=== PATIENT | female | born 1975 | race Caucasian/White ===

== ENCOUNTER 2019-06-22 12:10 | Emergency (ER) | payer SELFPAY ==
--- NOTE | 2019-06-22 12:30 | Event Note ---
Date: 06/22/19 , H/o irregular menstrual cycles, last cycle was 3 months ago. She states she has heavy vaginal bleeding that started this morning at 5 am, has gone through 3 pads since. no fever, flank pain, mild suprapubic discomfort. The initial assessment/diagnostic orders/clinical plan/treatment(s) is/are subject to change based on patient's health status,clinical progression and re- assessment by fellow clinical providers in the ED. Further treatment and workup at subsequent clinical providers discretion. Patient/guardian urged not to elope from the ED as their condition may be serious if not clinically assessed and managed.
[2019-06-22 12:59] LABS: Hematocrit 38.5 % (30.3-42.9); Hemoglobin 13.4 gm/dl (10.1-14.3); Mean Corpuscular HGB Conc 35 % (30-34); Mean Corpuscular Volume 97 fl (79-97); Platelet Count 271 K/mm3 (140-440); Red Blood Count 3.96 M/mm3 (3.65-5.03); Red Cell Distribution Width 12.6 % (13.2-15.2)
--- NOTE | 2019-06-22 13:09 | Emergency Department Report ---
ED Female HPI - General Chief complaint: Vaginal Bleeding Stated complaint: BLEEDING ABNORMAL Time Seen by Provider: 06/22/19 12:49 Source: patient Mode of arrival: Ambulatory Limitations: No Limitations - History of Present Illness Initial comments: This is a 43-year-old female presents to the emergency room with heavy vaginal bleeding and lower abdominal pain since yesterday. Patient reports history of menstrual cycles and fibroids. Her last menstrual cycle was 3 months prior to yesterday, . Patient reports changing pads every 30 minutes to 1 hour. Denies fever, flank pain, dysuria, and vaginal discharge. MD Complaint: vaginal bleeding, pelvic pain Onset/Timin -: days(s) Location: suprapubic Radiation: non-radiating Severity: severe Severity scale (0 -10): 10 Quality: cramping Consistency: intermittent Improves with: none Worsens with: menstrual period Are you Now?: No Last Menstrual Period: 06/21/19 EDC: 03/27/20 Associated Symptoms: vaginal bleeding, abdominal pain. denies: vaginal discharge, nausea/vomiting, fever/chills, headaches, loss of appetite, dysuria, hematuria, rash, seizure, shortness of breath, syncope, weakness - Related Data Sexually active: Yes : 4 Para: 3 Previous Rx's Medication Instructions Recorded Last Taken Type HYDROcodone/ACETAMINOPHEN [Lortab 1 each PO Q8H #12 tablet 08/04/14 Unknown Rx 5-325 mg Tablet] Naproxen [Naprosyn] 500 mg PO BID #20 tablet 08/04/14 Unknown Rx Acetaminophen/Codeine [Tylenol #3] 1 tab PO Q6H PRN #20 tab 03/30/15 Unknown Rx Ondansetron [Zofran] 4 mg PO Q8HR PRN #20 tablet 03/30/15 Unknown Rx miSOPROStol [Cytotec] 400 mcg PO Q4HR #3 tablet 03/30/15 Unknown Rx medroxyPROGESTERone ACETATE 10 mg PO QDAY #10 tablet 06/22/19 Unknown Rx [Provera] traMADol [Ultram 50 MG tab] 50 mg PO Q6HR PRN #12 tablet 06/22/19 Unknown Rx Allergies Allergy/AdvReac Type Severity Reaction Status Date / Time No Known Allergies Allergy Verified 04/03/15 08:44 ED Review of Systems ROS: Stated complaint: BLEEDING ABNORMAL Other details as noted in HPI Constitutional: denies: chills, fever Respiratory: denies: cough, shortness of breath, wheezing Cardiovascular: denies: chest pain, palpitations Gastrointestinal: abdominal pain. denies: nausea, diarrhea Genitourinary: abnormal menses. denies: urgency, dysuria, discharge Musculoskeletal: denies: back pain, joint swelling, arthralgia Skin: denies: rash, lesions Neurological: denies: headache, weakness, paresthesias Psychiatric: denies: anxiety, depression ED Past Medical Hx - Past Medical History Previous Medical History?: Yes Additional medical history: fibroids - Surgical History Past Surgical History?: Yes Additional Surgical History: fibroid removal 2011 - Social History Smoking Status: Never Smoker Substance Use Type: None - Medications Home Medications: Home Medications Medication Instructions Recorded Confirmed Last Taken Type HYDROcodone/ACETAMINOPHEN [Lortab 1 each PO Q8H #12 tablet 08/04/14 Unknown Rx 5-325 mg Tablet] Naproxen [Naprosyn] 500 mg PO BID #20 tablet 08/04/14 Unknown Rx Acetaminophen/Codeine [Tylenol #3] 1 tab PO Q6H PRN #20 tab 03/30/15 Unknown Rx Ondansetron [Zofran] 4 mg PO Q8HR PRN #20 tablet 03/30/15 Unknown Rx miSOPROStol [Cytotec] 400 mcg PO Q4HR #3 tablet 03/30/15 Unknown Rx medroxyPROGESTERone ACETATE 10 mg PO QDAY #10 tablet 06/22/19 Unknown Rx [Provera] traMADol [Ultram 50 MG tab] 50 mg PO Q6HR PRN #12 tablet 06/22/19 Unknown Rx ED Physical Exam - General Limitations: No Limitations General appearance: alert, in no apparent distress, obese - Respiratory Respiratory exam: Present: normal lung sounds bilaterally. Absent: respiratory distress - Cardiovascular Cardiovascular Exam: Present: regular rate, normal rhythm. Absent: systolic murmur, diastolic murmur, rubs, gallop - GI/Abdominal GI/Abdominal exam: Present: soft, tenderness (left lower quadrant and right lower quadrant), normal bowel sounds. Absent: distended, guarding, rebound, rigid, organomegaly, mass - Back Exam Back exam: Absent: CVA tenderness (R), CVA tenderness (L) - Neurological Exam Neurological exam: Present: alert, oriented X3, normal gait - Psychiatric Psychiatric exam: Present: normal affect, normal mood - Skin Skin exam: Present: warm, dry, intact, normal color. Absent: rash ED Course Vital Signs 06/22/19 06/22/19 12:25 15:45 Temperature 97.8 F 98.5 F Pulse Rate 65 57 L Respiratory 18 16 Rate Blood Pressure 112/66 Blood Pressure 103/55 [Right] O2 Sat by Pulse 99 100 Oximetry ED Medical Decision Making - Lab Data Result diagrams: 06/22/19 12:44 06/22/19 12:44 Lab Results 06/22/19 06/22/19 06/22/19 Range/Units 12:43 12:44 12:44 WBC 5.6 (4.5-11.0) K/mm3 RBC 3.96 (3.65-5.03) M/mm3 Hgb 13.4 (10.1-14.3) gm/dl Hct 38.5 (30.3-42.9) % MCV 97 (79-97) fl MCH 34 H (28-32) pg MCHC 35 H (30-34) % RDW 12.6 L (13.2-15.2) % Plt Count 271 (140-440) K/mm3 Sodium 139 (137-145) mmol/L Potassium 3.9 (3.6-5.0) mmol/L Chloride 105.9 (98-107) mmol/L Carbon Dioxide 22 (22-30) mmol/L Anion Gap 15 mmol/L BUN 12 (7-17) mg/dL Creatinine 0.6 L (0.7-1.2) mg/dL Estimated GFR > 60 ml/min BUN/Creatinine Ratio 20 % Glucose 101 H (65-100) mg/dL Calcium 8.8 (8.4-10.2) mg/dL Total Bilirubin 0.90 (0.1-1.2) mg/dL AST 35 (5-40) units/L ALT 58 H (7-56) units/L Alkaline Phosphatase 70 (35-129) units/L Total Protein 7.9 (6.3-8.2) g/dL Albumin 4.3 (3.9-5) g/dL Albumin/Globulin Ratio 1.2 % HCG, Qual (Negative) Urine Color Red (Yellow) Urine Turbidity Cloudy (Clear) Urine pH 6.0 (5.0-7.0) Ur Specific [place] 1.027 (1.003-1.030) Urine Protein 100 mg/dl (Negative) mg/dL Urine Glucose (UA) 50 (Negative) mg/dL Urine Ketones Tr (Negative) mg/dL Urine Blood Lg (Negative) Urine Nitrite Neg (Negative) Urine Bilirubin Neg (Negative) Urine Urobilinogen < 2.0 (<2.0) mg/dL Ur Leukocyte Esterase Neg (Negative) Urine WBC (Auto) 23.0 H (0.0-6.0) /HPF Urine RBC (Auto) > 182.0 (0.0-6.0) /HPF 06/22/19 Range/Units 12:48 WBC (4.5-11.0) K/mm3 RBC (3.65-5.03) M/mm3 Hgb (10.1-14.3) gm/dl Hct (30.3-42.9) % MCV (79-97) fl MCH (28-32) pg MCHC (30-34) % RDW (13.2-15.2) % Plt Count (140-440) K/mm3 Sodium (137-145) mmol/L Potassium (3.6-5.0) mmol/L Chloride (98-107) mmol/L Carbon Dioxide (22-30) mmol/L Anion Gap mmol/L BUN (7-17) mg/dL Creatinine (0.7-1.2) mg/dL Estimated GFR ml/min BUN/Creatinine Ratio % Glucose (65-100) mg/dL Calcium (8.4-10.2) mg/dL Total Bilirubin (0.1-1.2) mg/dL AST (5-40) units/L ALT (7-56) units/L Alkaline Phosphatase (35-129) units/L Total Protein (6.3-8.2) g/dL Albumin (3.9-5) g/dL Albumin/Globulin Ratio % HCG, Qual Negative (Negative) Urine Color (Yellow) Urine Turbidity (Clear) Urine pH (5.0-7.0) Ur Specific [place] (1.003-1.030) Urine Protein (Negative) mg/dL Urine Glucose (UA) (Negative) mg/dL Urine Ketones (Negative) mg/dL Urine Blood (Negative) Urine Nitrite (Negative) Urine Bilirubin (Negative) Urine Urobilinogen (<2.0) mg/dL Ur Leukocyte Esterase (Negative) Urine WBC (Auto) (0.0-6.0) /HPF Urine RBC (Auto) (0.0-6.0) /HPF - Radiology Data Radiology results: report reviewed CLINICAL DATA: LLQ and RLQ tenderness TECHNICAL DATA: Real-time imaging of the pelvic structures transabdominal and transvaginal imaging were performed along with Doppler imaging of the adnexa FINDINGS: The uterus measures 10.6 x 5.4 x 7.3 cm. Three uterine fibroids are present largest measuring 2.5 x 3.6 x 2.7 cm located in the fundus. Endometrium is thickened measuring 12 mm. The right and left ovaries are of symmetric size and echogenicity. 1.3 cm right ovarian cyst is present There are no ovarian or adnexal masses. Doppler imaging demonstrates normal vascular flow to both ovaries. There is no significant quantity of free fluid dependently within the pelvis. IMPRESSION: 1. Multiple uterine fibroids 2. Small right ovarian cyst 3. Thickened endometrium WOMEN OF REPRODUCTIVE AGE: 1. Cysts <=3 cm: Normal physiologic findings; at the discretion of the interpreting physician whether or not to describe them in the imaging report; do not need follow-up. 2. Cysts >3 and <=5 cm: Should be described in the imaging report with a statement that they are almost certainly benign; do not need follow-up. 3. Cysts >5 and <=7 cm: Should be described in the imaging report with a statement that they are almost certainly benign; yearly follow-up with US recommended. 4. Cysts >7 cm: Since these may be difficult to assess completely with US, further imaging with magnetic resonance (MR) or surgical evaluation should be considered. POSTMENOPAUSAL WOMEN: 1. Cysts <=1 cm: Are clinically inconsequential; at the discretion of the interpreting physician whether or not to describe them in the imaging report; do not need follow-up. 2. Cysts >1 and <=7 cm: Should be described in the imaging report with statement that they are almost certainly benign; yearly follow-up, at least initially, with US r ecommended. Some practices may opt to increase the lower size threshold for follow-up from 1 cm to as high as 3 cm. One may opt to continue follow-up annually or to decrease the frequency of follow-up once stability or decrease in size has been confirmed. Cysts in the larger end of this range should still generally be followed on a regular basis. 3. Cysts >7 cm: Since these may be difficult to assess completely with US, further imaging with MR or surgical evaluation should be considered. - Medical Decision Making Disposition was seen by this provider. Vitals are normal and patient is in no acute distress. Obtained labs and ultrasound of pelvic and transvaginal. Ultrasound findings of the followin. Multiple uterine fibroids, 2. Small right ovarian cyst, 3. Thickened endometrium. Review results with patient. Patient will be treated for dysfunctional uterine bleeding with Provera. For all to deputy county attorney for follow-up. Patient discharged home stable. Critical care attestation.: If time is entered above; I have spent that time in minutes in the direct care of this critically ill patient, excluding procedure time. ED Disposition Clinical Impression: Vaginal bleeding, Dysfunctional uterine bleeding Abdominal pain Qualifiers: Abdominal location: lower abdomen, unspecified Qualified Code(s): R10.30 - Lower abdominal pain, unspecified Uterine fibroid Qualifiers: Uterine leiomyoma location: unspecified location Qualified Code(s): D25.9 - Leiomyoma of uterus, unspecified Ovarian cyst Qualifiers: Laterality: right Qualified Code(s): N83.201 - Unspecified ovarian cyst, right side Disposition: TO HOME OR SELFCARE Is pt being admited?: No Does the pt Need Aspirin: No Condition: Stable Instructions: Uterine Fibroids (ED), Dysfunctional Uterine Bleeding (ED), Ovarian Cyst (ED) Additional Instructions: Follow-up with a deputy county attorney from the referral list below. Prescriptions: medroxyPROGESTERone ACETATE [Provera] 10 mg PO QDAY #10 tablet traMADol [Ultram 50 MG tab] 50 mg PO Q6HR PRN #12 tablet PRN Reason: Pain Referrals: [facility] [Outside] - 3-5 Days [facility] [Outside] - 3-5 Days [facility] [Provider Group] - 3-5 Days [facility] [Provider Group] - 3-5 Days Time of Disposition: 16:37
[2019-06-22 13:16] LABS: Alanine Aminotransferase 58 units/L (7-56); Albumin 4.3 g/dL (3.9-5); BUN/Creatinine Ratio 20; Blood Urea Nitrogen 12 mg/dL (7-17); Calcium 8.8 mg/dL (8.4-10.2); Hemolysis Index 9
[2019-06-22 13:34] LABS: Bilirubin,Urine NEG (Negative); Blood,Urine LG (Negative); Color,Urine Red (Yellow); Urobilinogen,Urine < 2.0 mg/dL (<2.0)
[2019-06-22 13:35] LABS: RBC,Urine > 182.0 /HPF (0.0-6.0)
[2019-06-22 15:46] VITALS: BP 103/55
--- NOTE | 2019-06-22 16:16 | Ultrasound Report ---
Examination: Complete pelvic ultrasound, 06/22/2019 Clinical information: Right and left lower quadrant abdominal pain/pelvic pain. Comparison: No prior studies are available for comparison. Findings: The uterus is upper limits of normal in size measuring 10.6 X 5.4 x 7.3 cm. The uterus demonstrates a diffusely inhomogeneous echotexture. The endometrial complex is mildly thickened measuring 11 mm. Bilateral adnexal regions appear within normal limits. No free pelvic fluid is seen. Impression: 1. Inhomogeneous appearance of the uterus may be due to the presence of multiple uterine fibroids. 2. No sonographic evidence of acute intrapelvic abnormality. Signer Name: Fide Hinkle MD Signed: 06/22/2019 4:11 PM Workstation Name: [id number]
--- NOTE | 2019-06-22 16:19 | Ultrasound Report ---
CLINICAL DATA: LLQ and RLQ tenderness TECHNICAL DATA: Real-time imaging of the pelvic structures transabdominal and transvaginal imaging were performed charly ng with Doppler imaging of the adnexa FINDINGS: The uterus measures 10.6 x 5.4 x 7.3 cm. Three uterine fibroids are present largest measuring 2.5 x 3 .6 x 2.7 cm located in the fundus. Endometrium is thickened measuring 12 mm. The right and left ovaries are of symmetric size and echogenicity. 1.3 cm right ovarian cyst is prese nt There are no ovarian or adnexal masses. Doppler imaging demonstrates normal vascular flow to both ovaries. There is no significant quantity of free fluid dependently within the pelvis. IMPRESSION: 1. Multiple uterine fibroids 2. Small right ovarian cyst 3. Thickened endometrium WOMEN OF REPRODUCTIVE AGE: 1. Cysts <=3 cm: Normal physiologic findings; at the discretion of the interpreting physician whether or not to describe them in the imaging report; do not need follow-up. 2. Cysts >3 and <=5 cm: Should be described in the imaging report with a statement that they are almo st certainly benign; do not need follow-up. 3. Cysts >5 and <=7 cm: Should be described in the imaging report with a statement that they are almo st certainly benign; yearly follow-up with US recommended. 4. Cysts >7 cm: Since these may be difficult to assess completely with US, further imaging with magne tic resonance (MR) or surgical evaluation should be considered. POSTMENOPAUSAL WOMEN: 1. Cysts <=1 cm: Are clinically inconsequential; at the discretion of the interpreting physician whet her or not to describe them in the imaging report; do not need follow-up. 2. Cysts >1 and <=7 cm: Should be described in the imaging report with statement that they are almost certainly benign; yearly follow-up, at least initially, with US recommended. Some practices may opt to increase the lower size threshold for follow-up from 1 cm to as high as 3 cm. One may opt to edmund nue follow-up annually or to decrease the frequency of follow-up once stability or decrease in size h as been confirmed. Cysts in the larger end of this range should still generally be followed on a regu lar basis. 3. Cysts >7 cm: Since these may be difficult to assess completely with US, further imaging with MR or surgical evaluation should be considered. Signer Name: Trevor Christianson MD Signed: 06/22/2019 4:15 PM Workstation Name: [id number]
[2019-06-22] MEDS ORDERED: TORADOL IM ONE (16:23)
== END 2019-06-22 16:47 | disposition home or self-care (01) ==
LOC: ED 12:10
DX: D25.9 Leiomyoma of uterus, unspecified (principal); N83.201 Unspecified ovarian cyst, right side; N93.8 Other specified abnormal uterine and vaginal bleeding; Z98.890 Other specified postprocedural states; Z79.899 Other long term (current) drug therapy
CPT/HCPCS: 36415; 76830; 76856; 80053; 81001; 84703; 85027; 87086; 96372; 99284; J1885